=== PATIENT | female | born 1955 | race Caucasian/White ===

== ENCOUNTER 2019-09-03 09:12 | Outpatient (CLI) | payer BC, SELFPAY ==
--- NOTE | 2019-09-03 09:21 | MM_ITS ---
WS: [id number] BILATERAL DIGITAL SCREENING MAMMOGRAPHY WITH CAD CLINICAL INFORMATION: SCREENING HISTORY: Screening mammogram. No current complaints. COMPARISON: None. TECHNIQUE: Bilateral CC and MLO views. FINDINGS: The breasts are composed of heterogeneous fibroglandular density tissue, which can limit the detectio n of small underlying mass lesions. No suspicious mass, asymmetry, calcifications, or architectural d istortion. Vascular calcification. No evidence of malignancy. MM/[id number] IMPRESSION: BI-RADS: 2-Benign FOLLOW UP: 1 Year Follow-up Recommend return to annual screening mammography.
== END 2019-09-03 09:13 | disposition home or self-care (01) ==
LOC: RADSHAW 09:12
PROVIDERS: Family Provider Family Medicine; PCP Family Medicine; Visit Provider Family Medicine
DX: Z12.31 Encounter for screening mammogram for malignant neoplasm of breast (principal)
CPT/HCPCS: 77067

== ENCOUNTER → 2020-11-30 09:49 | Outpatient (BNVA) | payer MEDICARE, SELFPAY | PROVIDERS: Family Provider Family Medicine; PCP Family Medicine; Visit Provider Family Medicine | DX: Z01.419 Encounter for gynecological examination (general) (routine) without abnormal findings (principal); M65.332 Trigger finger, left middle finger; Z78.9 Other specified health status | CPT/HCPCS: 80053; 80061; 84443; 85025; 88175 ==

== ENCOUNTER → 2020-12-03 10:33 | Outpatient (BNVA) | payer MEDICARE, SELFPAY | PROVIDERS: Family Provider Family Medicine; PCP Family Medicine; Visit Provider Family Medicine | DX: R79.89 Other specified abnormal findings of blood chemistry (principal) | CPT/HCPCS: 84439; 84443; 84481 ==

== ENCOUNTER → 2020-12-23 09:09 | Outpatient (BNVA) | payer MEDICARE, SELFPAY | PROVIDERS: Family Provider Family Medicine; PCP Family Medicine; Referring Provider Family Medicine; Visit Provider Specialist | DX: M65.332 Trigger finger, left middle finger (principal) | CPT/HCPCS: 73130 ==

== ENCOUNTER → 2020-12-28 09:03 | Outpatient (BNVA) | payer MEDICARE, SELFPAY | PROVIDERS: Family Provider Family Medicine; PCP Family Medicine; Visit Provider Specialist | DX: M65.332 Trigger finger, left middle finger (principal); Z20.822 Contact with and (suspected) exposure to COVID-19 | CPT/HCPCS: 87635 ==

== ENCOUNTER 2021-01-01 06:21 | Day surgery (SDC) | payer MEDICARE, SELFPAY ==
[2020-12-31 08:56] VITALS: BMI 22.8
--- NOTE | 2020-12-31 09:06 | ANES.PREANE2 ---
Pre-Anesthetic Assessment Pre-Anesthetic Assessment: Height/Weight: Height 1.57 m Weight 56.699 kg Preop Diagnosis: Trigger finger Proposed Procedure: Operation Date: 01/01/21 09:15 Proposed Procedures p LEFT LONG FINGER TRIGGER FINGER RELEASE [id number](Left) - Gaby Michele MD Familial anesthetic complications: NOne Social: Social History: No alcohol and No tobacco Exam: Pre-Anes Outpt Exam: alert, oriented x 3, clear to auscultation bilaterally and regular rate & rhythm Airway: Cervical ROM: WNL MP: 3 Dentition: Full Anesthetic Plan: ASA status: 1 Anesthesia: MAC and Regional (specify below) (renaldo block) Risk of > 500 ml blood loss (7ml/kg in children): No PFSH Anesthesia PFSH: Medical History Depression Surgical History Status post trigger finger release Left ring finger Data Anesthesia Cardiac Studies: No Data to Display
[2021-01-01 06:34] VITALS: BP 151/79; PULSE 88; RESP 18; TEMP 36.4; O2SAT 97
[2021-01-01] MEDS: sodium chloride 0.9% 1,000 ML 30 ML IV (06:53)
[2021-01-01] MEDS: CELEcoxib 200 mg Capsule 400 MG PO (06:53)
[2021-01-01] MEDS: acetaminophen 1,000 MG/100 ML PIGGYBACK 400 MG IV (06:53)
--- NOTE | 2021-01-01 06:59 | P.HPUD_ITS ---
Surgery/Procedure H&P Update DATE OF PROCEDURE: January 01, 2021 DATE H&P PERFORMED: 12/23/20 H&P UPDATE INFORMATION: I have reviewed H&P completed within last 30 days, I have examined patient prior to procedure, No changes to prior documentation and H&P is in [facility] on date indicated PREOP DIAGNOSIS: Left middle finger triggering PLANNED PROCEDURE: Operation Date: 01/01/21 08:15 Proposed Procedures p LEFT LONG FINGER TRIGGER FINGER RELEASE [id number](Left) - Gaby Michele MD
--- NOTE | 2021-01-01 07:05 | P.ANESUD_ITS ---
Pre-Anesthetic Update Pre-Anesthetic Assessment: Date of Surgery/Procedure: 01/01/21 Preop Aniya gnosis: Left middle finger triggering Proposed Procedure: Operation Date: 01/01/21 08:15 Proposed Procedures p LEFT LONG FINGER TRIGGER FINGER RELEASE [id number](Left) - Gaby Michele MD Any changes to Pre-Anesthetic Assessment?: No Last Intake: Intake Last Liquid Date 12/31/20 Last Liquid Time 17:00 Last Solid Date 12/31/20 Last Solid Time 17:00 Vitals: Temperature 97.6 F 01/01/21 06:34 Temperature Source Temporal Artery S can 01/01/21 06:34 Pulse Rate 88 01/01/21 06:34 Pulse Rhythm 01/01/21 06:34 Pulse Strength 3+ Normal 01/01/21 06:34 Respiratory Rate 18 01/01/21 06:34 Blood Pressure 151/79 01/01/21 06:34 Blood Pressure Shyann n 103 01/01/21 06:34 Pulse Oximetry 97 01/01/21 06:34 Oxygen Delivery Me thod 01/01/21 06:34 Exam: Pre-Anes Outpt Exam: alert, oriented x 3, clear to auscultation bilaterally and regular rate & rhythm Cardiac Studies: No Data to Display
[2021-01-01 08:56] VITALS: BP 141/79; PULSE 88; RESP 16; TEMP 36.2; O2SAT 94
[2021-01-01 09:00] VITALS: BP 138/68; PULSE 85; RESP 17; TEMP 36.4; O2SAT 94
[2021-01-01 09:04] VITALS: BP 153/92; PULSE 83; RESP 18; TEMP 36.4; O2SAT 98
--- NOTE | 2021-01-01 09:05 | P.OP_ITS ---
Operative Report Date of procedure: January 01, 2021 Pre-op Diagnosis: Left middle finger triggering Post-op diagnosis: same Post-op Findings: Significant synovitis and triggering of the left middle finger. Procedure Done: Trigger finger release left middle finger Specimens removed/disposition: None Pathology: none sent Surgeon: [facility] Hospitalist: None Anesthesia: MAC (With [place] block) Estimated blood loss (mL): 2 Tourniquet time (min): 26 Tourniquet time: At 250 mmHg IV fluids (mL): 500 Urine output (mL): 0 Urine output: No [place] Complications: None Findings: Tight A1 alyssa with synovitis proximally and distally, no tendon damage. Condition: stable Disposition: PACU (Then to same-day surgery for discharge) Brief History: This 65-year-old woman presented with complaints of triggering which was painful in the left long finger. She had previously undergone right trigger finger release elsewhere. She wished to have her trigger finger release, and risks and complications were discussed with her. Consents were signed. Questions were answered. Procedure: Patient was brought to the operating theater. She was placed on the operating room table. A Jose Alejandro block was administered without difficulty. Patient tolerated it well. 2 g of Ancef was administered preoperatively as prophylaxis. A tourniquet was placed high on the arm and was elevated for the Jose Alejandro block. This followed exsanguination of the arm. Tourniquet time was 26 minutes at 250 mmHg. Surgical pause was performed prior to commencement of the surgical procedure. At the time of the surgical pause we identified the site and side of surgery. We also identified the patient's identity and appropriate administration of IV antibiotics. Following the surgical pause, an incision was made along the distal palmar crease beneath the middle finger. Dissection continued through the skin to the subcutaneous tissues using a scalpel. Blunt dissection was then utilized to spread soft tissues and allow access to the A1 alyssa. Each A1 alyssa was identified. It was then incised longitudinally and sharply using a knife. This was accomplished without difficulty and atraumatically. Once the A1 alyssa was released, tendons were brought up out of the wound and evaluated. There were no gross masses on the tendons. Tendons were returned to normal position. We then irrigated the wound and subsequently closed it with 3-0 nylon with an interrupted mattress type suture. Following closure of the wound, the wound was injected with bupivacaine plain into the subcutaneous tissues as a local anesthetic. Sterile dressing was then placed consisting of Dermabond, OpSite, fluffed fluffs sterile soft roll, and an Jez wrap. The patient was returned to recovery in satisfactory condition. She will be discharged home to follow-up with me in the office. There were no complications and no specimens. Associated Problem List Diagnoses (1) Trigger finger, left middle finger:
--- NOTE | 2021-01-01 13:13 | ANE.PACU2 ---
Inpatient post-anesthesia follow up: Airway intact: Yes Vital signs: Temperature 97.6 F Pulse Rate 83 Respiratory Rate 18 Blood Pressure 153/92 Pulse Oximetry 98 Oxygen Delivery Me thod Room Air Oxygen Flow Rate Fraction of Inspir ed Oxygen Hydration adequate: Yes Nausea and vomiting: No Pain level: 2 Mental status: Baseline
== END 2021-01-01 09:44 | disposition home or self-care (01) ==
PROVIDERS: PCP Family Medicine; Visit Provider Specialist
PROC: (CPT 26055; principal; 2021-01-01 08:05)
DX: M65.332 Trigger finger, left middle finger (principal)
CPT/HCPCS: 26055; 96365; J0690; J2704; J3010; J3490; J7030

== ENCOUNTER 2021-01-14 09:15 | Outpatient (CLI) | payer MEDICARE, SELFPAY ==
--- NOTE | 2021-01-14 10:00 | MM_ITS ---
WS: [id number] BILATERAL DIGITAL SCREENING MAMMOGRAPHY WITH CAD CLINICAL INFORMATION: Z12.31 - Encounter for screening mammogram for malignant ... HISTORY: Screening mammogram. No current complaints. COMPARISON: September 03, 2019 TECHNIQUE: Bilateral CC and MLO views. FINDINGS: The breasts are composed of heterogeneous fibroglandular density tissue, which can limit the detectio n of small underlying mass lesions. Vascular calcification. A few punctate calcifications. 8 mm asymm etric density inferior quadrant left breast more prominent compared to previous best seen on the MLO view. Recommend spot compression views left breast and ultrasound if persistent. Right breast is unchanged. MPRESSION: MM/[place] [id number] BI-RADS: 0-Incomplete: Need additional imaging evaluation FOLLOW UP: Need Additional Imaging Recommend left breast diagnostic mammography and ultrasound if persistent.
== END 2021-01-14 09:16 | disposition home or self-care (01) ==
LOC: RADSHAW 09:17
PROVIDERS: PCP Family Medicine; Visit Provider Family Medicine
DX: Z12.31 Encounter for screening mammogram for malignant neoplasm of breast (principal)
CPT/HCPCS: 77067

== ENCOUNTER 2021-01-26 12:54 | Outpatient (CLI) | payer MEDICARE, SELFPAY ==
--- NOTE | 2021-01-26 13:03 | MM_ITS ---
WS: [id number] LEFT DIGITAL MAMMOGRAPHY WITH CAD CLINICAL INFORMATION: Left Breast Mass COMPARISON: January 14, 2021 TECHNIQUE: 2 views of the left breast were obtained. FINDINGS: The left breast is composed of heterogeneous fibroglandular density tissue, which can limit the detec tion of small underlying mass lesions. Dense parenchymal tissue inferior quadrant left breast. Vascular calcification. A few punctate calcifications. Stable 8 mm asymmetric density inferior quadra nt left breast. Ultrasound is pending. ULTRASOUND BREAST LEFT TECHNIQUE: Ultrasound left breast focused area of concern. CLINICAL INFORMATION: Left Breast Mass FINDINGS: Ultrasound left breast 7:00 position 2 cm from the nipple. There is a slightly irregular hypoechoic l esion taller than wide. This may be intraductal in location. This lesion is indeterminant and recomme nd further evaluation ultrasound-guided biopsy. MM/[id number] IMPRESSION: BI-RADS: 4-Suspicious Finding-Biopsy Should Be Considered FOLLOW UP: US Guided Biopsy Recommended RECOMMEND ULTRASOUND-GUIDED BIOPSY LEFT BREAST LESION.
== END 2021-01-26 12:55 | disposition home or self-care (01) ==
LOC: RADSHAW 12:58
PROVIDERS: PCP Family Medicine; Visit Provider Family Medicine
DX: N63.20 Unspecified lump in the left breast, unspecified quadrant (principal)
CPT/HCPCS: 76642; 77065

== ENCOUNTER 2021-02-05 12:07 | Outpatient (CLI) | payer MEDICARE, SELFPAY ==
--- NOTE | 2021-02-05 13:00 | US_ITS ---
WS: [id number] ULTRASOUND LEFT BREAST, limited HISTORY: Left Breast Mass COMPARISON: 01/26/2021, 01/14/2021 TECHNIQUE: 2-D and Doppler. Patient presents for biopsy of the LEFT breast mass at 7:00. Cannot confirm there is a suspicious mas s at 7:00, 2 cm from the nipple in the LEFT breast. Normal fibroglandular tissue. There is no distort ion of the soft tissues or persistent mass on 2 separate planes. Does not correspond in size to the m ammographic abnormality. No biopsy will be performed today. This was explained to the patient in detail. At this time recommen d follow-up diagnostic mammogram in 6 months and possible ultrasound. US/US breast LT limited* [id number] IMPRESSION: BI-RADS: 3-Probably Benign FOLLOW-UP: 6 Month Follow-up Diagnostic LEFT mammogram in 6 months and possible ultrasound to follow.
== END 2021-02-05 12:08 | disposition home or self-care (01) ==
LOC: RAD 12:08
PROVIDERS: PCP Family Medicine; Visit Provider Family Medicine
DX: N63.24 Unspecified lump in the left breast, lower inner quadrant (principal)
CPT/HCPCS: 76642

== ENCOUNTER 2021-06-04 11:58 | Emergency (ER) | payer MEDICARE, SELFPAY ==
[2021-06-04 12:03] VITALS: BP 135/70; PULSE 145; RESP 18; TEMP 36.3; O2SAT 97; BMI 21.9
--- NOTE | 2021-06-04 12:11 | ED_ITS ---
HPI - Allergic Reaction General: Chief complaint: Allergic Reaction Stated complaint: ITCHY RASH: MODERNA BOOSTER YESTERDAY Time Seen by Provider: 06/04/21 12:11 History of Present Illness: HPI narrative: Ms. Blanton is a 65-year-old lady with history of anxiety who presents emergency department due to allergic reaction symptoms. She reports being at her baseline health received a moderna booster shot yesterday. She had no complications with initial dose. She woke up this morning and noticed increased swelling and redness at the injection site on her right arm. She laid back down for nap as she had generalized associated fatigue and when she woke up noticed a rash that was itchy on her hands. This is subsequently spread up her arms and now involves nearly her whole body. She denies associated shortness of breath, difficulty swallowing, throat tightness, nausea, vomiting, diarrhea or other separate system involvement. She denies similar episodes in the past. No new environmental exposures. Intensity of itching is moderate. Course has been worsening. She tried fexofenadine without significant leaf. No other new changes in health, exacerbating, or alleviating factors identified. Review of Systems General: Reports: 10 or more systems reviewed and unremarkable except in HPI and below PFSH ED PFSH: Medical History Depression Surgical History Status post trigger finger release Left ring finger Physical Exam Narrative: EXAM NARRATIVE: GENERAL/CONSTITUTIONAL - well-appearing. No acute distress. Eyes -no scleral icterus, no conjunctival injection ENMT - Atraumatic external nose and ears. Moist mucous membranes NECK - supple. trachea midline CARDIOVASCULAR -tachycardic rate and regular rhythm. RESPIRATORY -clear to auscultation bilaterally. No wheezes. No retractions or accessory muscle use. ABDOMEN/GI - Nontender/Nondistended. MSK - Extremities without obvious deformity or tenderness to palpation SKIN - Warm, Dry. Generalized urticarial appearing rash. No vesicles or desquamation. No blisters. NEURO - alert and appropriately oriented. Moves all extremities equally. PSYCH -mildly anxious. Course ED course: - Patient was seen and evaluated by me at bedside - Patient placed on cardiac monitors, IV access obtained - Initial evaluation notable for rash as noted above, tachycardia, no other evidence of anaphylaxis. -Symptom treatment ordered - Upon serial reexamination after treatment the patient was markedly improved with complete resolution of symptoms - Based on patient history, evaluation, labs, and imaging as interpreted the most likely cause of the patient's condition is allergic reaction - The results of ED evaluation were discussed with the patient including prescriptions and/or symptomatic cares (if applicable) including appropriate and responsible use, followup plan, and return precautions. The patient verbalized understanding and felt safe for discharge. - Patient discharged in satisfactory condition. Vital Signs: Vital signs: Vital Signs Temperature 97.3 F L 06/04/21 12:03 Pulse Rate 88 06/04/21 14:23 Respiratory Rate 18 06/04/21 14:23 Blood Pressure 155/88 06/04/21 14:23 Pulse Oximetry 99 06/04/21 14:23 MDM - Allergic Reaction Medical Records: Attestation: I reviewed the patient's medical records. Lab Data: Attestation: I reviewed the patient's lab results. Discharge Plan Discharge Patient Disposition: Home Clinical Impression: Allergic reaction Condition: Stable Prescriptions: New prednisone 50 mg tablet 50 mg PO DAILY 5 Days Qty: 5 RF: 0 Pepcid 40 mg tablet 40 mg PO BID 5 Days Qty: 10 RF: 0 Benadryl Allergy 25 mg tablet 25 mg PO Q6H PRN (Reason: allergic reaction) 5 Days Qty: 20 RF: 0 No Action venlafaxine 75 mg tablet extended release 24hr 75 mg PO DAILY PRN (Reason: anxiety) Qty: 30 RF: 3 alprazolam 0.25 mg tablet 0.25 mg PO BID Qty: 60 RF: 5 venlafaxine 150 mg tablet extended release 24hr 150 mg PO DAILY Qty: 30 RF: 6 Discharge Orders: Discharge ED (Routine); Ordered 06/04/21 Ordered By: Westley Henderson Referrals: Helen Mazariegos MD [Primary Care Provider] - Discharge Diet: Usual diet Discharge Activity: Resume usual activity Patient Instructions: General Allergic Reaction (ED) Activity Restrictions/Additional Instructions: Thank you for visiting the emergency department. You were seen and evaluated for allergic reaction. The exact cause of your symptoms is unclear though may be related to a component in the moderna vaccine. Please avoid this in the future. As discussed, I recommend caution when receiving any other Covid vaccine due to possibility of recurrence/worsening. Please follow-up with your primary care provider. Please return the emergency department for recurrence of symptoms, shortness of breath, throat swelling, vomiting or diarrhea, or anything else that you are concerned about and feel needs emergency department evaluation. Coding Level of Care Code ED Implementation Engineer for Batsheva Taylor
[2021-06-04] MEDS: famotidine 20 mg/2 mL INJ 40 MG IVP (13:01)
[2021-06-04] MEDS: lactated ringers 1,000 ML 999 ML IV (13:01)
[2021-06-04] MEDS: diphenhydrAMINE 50 mg/mL SDV 1mL 25 MG IVP (13:01)
[2021-06-04 13:45] VITALS: BP 173/90; PULSE 99; RESP 18; O2SAT 99
[2021-06-04 14:23] VITALS: BP 155/88; PULSE 88; RESP 18; O2SAT 99
== END 2021-06-04 14:28 | disposition home or self-care (01) ==
PROVIDERS: Emergency Provider Emergency Medicine; PCP Family Medicine
DX: R21 Rash and other nonspecific skin eruption (principal); T78.49XA Other allergy, initial encounter; Y84.8 Other medical procedures as the cause of abnormal reaction of the patient, or of later complication, without mention of misadventure at the time of the procedure
CPT/HCPCS: 96361; 96374; 96375; 99283; J1200; J2930; J3490

== ENCOUNTER 2022-01-17 07:57 | Outpatient (CLI) | payer MEDICARE, SELFPAY ==
--- NOTE | 2022-01-17 08:20 | MM_ITS ---
WS: [id number] BILATERAL SCREENING DIGITAL BREAST TOMOSYNTHESIS MAMMOGRAM WITH CAD HISTORY: SCREEN COMPARISON: 01/26/2021, 01/14/2021 and 09/03/2019 and breast ultrasound 02/05/2021 and 01/26/2021. Bilateral CC and MLO views with tomosynthesis and synthetic mammography submitted. Computer aided det ection analyzed. Breast composition: The breasts are heterogeneously dense, which may obscure small masses. No suspici ous masses, microcalcifications or architectural distortion. Bilateral breast asymmetries and calcifi cations. No significant progression of abnormalities. 6 month follow-up was recommended for a lesion in the LEFT breast seen on ultrasound and prior mammog elisa, referred to ultrasound dated 02/05/2021. Today's study was ordered as a screening examination. Sandhya reeves and physician have elected for screening examination today. MM/[place] [id number] IMPRESSION: BI-RADS: 2-Benign FOLLOW UP: 1 Year Follow-up
== END 2022-01-17 07:58 | disposition home or self-care (01) ==
LOC: RAD 08:06
PROVIDERS: PCP Family Medicine; Visit Provider Family Medicine
DX: Z12.31 Encounter for screening mammogram for malignant neoplasm of breast (principal)
CPT/HCPCS: 77063; 77067

== ENCOUNTER → 2023-03-07 09:42 | Outpatient (BNVA) | payer MEDICARE, SELFPAY | PROVIDERS: PCP Family Medicine; Visit Provider Family Medicine | DX: B36.9 Superficial mycosis, unspecified (principal); H62.40 Otitis externa in other diseases classified elsewhere, unspecified ear; Z13.220 Encounter for screening for lipoid disorders; Z13.6 Encounter for screening for cardiovascular disorders; E78.5 Hyperlipidemia, unspecified | CPT/HCPCS: 80053; 80061; 84443; 85025 ==

== ENCOUNTER → 2023-07-05 12:27 | Outpatient (BNVA) | payer MEDICARE, SELFPAY | PROVIDERS: PCP Family Medicine; Visit Provider Family Medicine | DX: E78.5 Hyperlipidemia, unspecified (principal) | CPT/HCPCS: 80061 ==

== ENCOUNTER 2023-08-16 12:45 | Outpatient (CLI) | payer MEDICARE, SELFPAY ==
--- NOTE | 2023-08-16 12:53 | MM_ITS ---
WS: [id number] BILATERAL 3D TOMOSYNTHESIS DIGITAL SCREENING MAMMOGRAPHY WITH CAD CLINICAL INFORMATION: Z12.39 - Encounter for other screening for malignant neop... HISTORY: Screening mammogram. No current complaints. COMPARISON: 2021 TECHNIQUE: Bilateral CC and MLO views. FINDINGS: The breasts are composed of heterogeneous fibroglandular density tissue, which can limit the detectio n of small underlying mass lesions. No suspicious mass, asymmetry, calcifications, or architectural d istortion. No evidence of malignancy. Incidental punctate calcifications. Vascular calcifications. IMPRESSION: MM/[place] [id number] BI-RADS: 2-Benign FOLLOW UP: 1 Year Follow-up Recommend return to annual screening mammography.
== END 2023-08-16 12:46 | disposition home or self-care (01) ==
LOC: RAD 12:46
PROVIDERS: PCP Family Medicine; Visit Provider Family Medicine
DX: Z12.31 Encounter for screening mammogram for malignant neoplasm of breast (principal)
CPT/HCPCS: 77063; 77067

== ENCOUNTER → 2024-03-28 11:50 | Outpatient (BNVA) | payer MEDICARE, SELFPAY | PROVIDERS: PCP Family Medicine; Visit Provider Family Medicine | DX: F32.9 Major depressive disorder, single episode, unspecified (principal); E78.5 Hyperlipidemia, unspecified | CPT/HCPCS: 80053; 80061; 84443; 85025 ==

== ENCOUNTER 2024-04-18 07:19 | Outpatient (CLI) | payer MEDICARE, SELFPAY ==
--- NOTE | 2024-04-18 08:14 | XR_ITS ---
WS: [id number] XR hip BI 2V wo/[place] [id number] REASON FOR EXAM: LEFT HIP JOINT PAIN FINDINGS: RIGHT HIP: No fracture or focal bone lesion. Moderate narrowing of the joint space with moderate subchondral sclerosis and osteophytosis. Mild ost eophytosis of the femoral head. No soft tissue abnormality. XR/XR hip BI 2V wo/[place] pel [id number] IMPRESSION: Moderate osteoarthritis in the right hip. LEFT HIP: No fracture or focal bone lesion. Moderate narrowing of the joint space with moderate subchondral sclerosis and o steophytosis. Moderate osteophytosis of the femoral head. No soft tissue abnormality. IMPRESSION: Moderate to significant osteoarthritis of the left hip.
== END 2024-04-18 07:20 | disposition home or self-care (01) ==
PROVIDERS: PCP Family Medicine; Visit Provider Family Medicine
DX: M16.0 Bilateral primary osteoarthritis of hip (principal); M25.751 Osteophyte, right hip; M25.752 Osteophyte, left hip; M24.151 Other articular cartilage disorders, right hip; M24.152 Other articular cartilage disorders, left hip
CPT/HCPCS: 73521

== ENCOUNTER 2025-05-14 13:55 | Outpatient (CLI) | payer MEDICARE, SELFPAY ==
--- NOTE | 2025-05-14 14:06 | MM_ITS ---
WS: [id number] BILATERAL 3D TOMOSYNTHESIS DIGITAL SCREENING MAMMOGRAPHY WITH CAD CLINICAL INFORMATION: SCREENING HISTORY: Screening mammogram. No current complaints. COMPARISON: 2023 TECHNIQUE: Bilateral CC and MLO views. FINDINGS: The breasts are composed of heterogeneous fibroglandular density tissue, which can limit the detection of small underlying mass lesions. No suspicious mass, asymmetry, calcifications, or architectural distortion. No evidence of malignancy. Vascular calcification. A few incidental punctate calcifications. MM/MM [facility] tomosynthesis [id number] IMPRESSION: DENSITY: The breasts are heterogeneously dense, which may obscure small masses. BI-RADS: 2 - Benign FOLLOW UP: 1 Year Follow-up Recommend return to annual screening mammography.
== END 2025-05-14 13:56 | disposition home or self-care (01) ==
LOC: RAD 13:57
PROVIDERS: PCP Family Medicine; Visit Provider Family Medicine
DX: Z12.31 Encounter for screening mammogram for malignant neoplasm of breast (principal); R92.333 Mammographic heterogeneous density, bilateral breasts; R92.323 Mammographic fibroglandular density, bilateral breasts; R92.1 Mammographic calcification found on diagnostic imaging of breast
CPT/HCPCS: 77063; 77067